=== PATIENT | female | born 1990 | race Hispanic/Latino ===

== ENCOUNTER 2018-01-09 21:46 | Emergency (ER) | payer MEDICARE ==
[~2018-01-09] VITALS: Ht 154.9 cm; Wt 77.1 kg
--- OUTSIDE RECORDS SUMMARY | 2018-01-09 21:49 | XMS REPORT | Continuity of Care Document ---
Author Author [facility] Interface Address Unknown Phone Unavailable Problems Problem Status Onset Date Classification Date Reported Comments Source Medications Medication Details Route Status Patient Instructions Ordering Provider Order Date Source Allergies, Adverse Reactions, Alerts Substance Category Reaction Severity Reaction type Status Date Reported Comments Source Immunizations Immunization Date Given Site Status Last Updated Comments Source Results Order Name Results Value Reference Range Date Interpretation Comments Source Vital Signs Vital Sign Value Date Comments Source Encounters Location Location Details Encounter Type Encounter Number Reason For Visit Attending Provider ADM Date DC Date Status Source Outpatient [id number] CASSIDY BUSTILLO 09/05/2015 Active [facility] Outpatient [id number] CASSIDY BUSTILLO 05/21/2016 Active [facility] Outpatient [id number] CASSIDY BUSTILLO 05/27/2016 Active [facility] Outpatient [id number] CASSIDY BUSTILLO 11/18/2016 Active [facility] Procedures Procedure Code Date Perfomer Comments Source
[2018-01-09] MEDS ORDERED: IBUPROFEN 600 MG TAB PO STA (22:31)
[2018-01-09] MEDS ORDERED: ACETAMINOPHEN 325 MG TAB ONE (22:33)
[2018-01-09] MEDS ORDERED: ACETAMINOPHEN 325 MG TAB PO ONE (22:45)
[2018-01-09 23:02] LABS: INFLUENZAE A&B ANTIGEN (RAPID) NEGATIVE (NEGATIVE)
[2018-01-09 23:03] LABS: STREPTOCOCCUS GRP A ANTIGEN NEGATIVE (NEGATIVE)
== END 2018-01-10 01:30 | disposition home or self-care (01) ==
LOC: ER 21:46
DX: R50.9 Fever, unspecified (principal); R05 Cough; J00 Acute nasopharyngitis [common cold]
CPT/HCPCS: 83518; 87070; 87400; 99283